=== PATIENT | male | born 1945 | race Caucasian/White ===

== ENCOUNTER 2016-04-27 06:19 | Day surgery (SDC) | payer MEDICARE, OTHER ==
--- NOTE | ~2016-04-27 | OP ---
Record Of Operation [facility] [address] [place]. [address] NAME: ANDREW BELLO : 49 STATUS : [facility]#: [id number] AGE: 71 ADM/REG DATE : 04/27/16 MR#: [id number] REPORT SERV DATE: 04/27/16 DICTATED BY: CYNTHIA TOSCANO DATE: 04/27/16 REPORT STATUS : Draft TRANSCRIBED BY: MODL DATE: 04/27/16 DATE OF PROCEDURE: 04/27/2016 PREOPERATIVE DIAGNOSIS: A 4.2 cm right thyroid nodule benign follicular lesion. 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 PROCEDURE PERFORMED: Right thyroid lobectomy with isthmusectomy. SURGEON: Cynthia Toscano M.D. CULTURAL ANTHROPOLOGY PROFESSOR: Sebastian Schaefer. ANESTHESIA: General. COMPLICATIONS: None. CONDITION: Stable to recovery. INDICATION: This is a 71-year-old male with a longstanding history of right thyroid nodule over 4 cm followed with needle biopsy and ultrasound. 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 The risks, benefits, and alternatives to right thyroid lobectomy, possible total thyroidectomy were explained and he agreed. PROCEDURE IN DETAIL: The patient was identified in the preoperative holding and taken back to the operating room, and placed supine on the operating room table. General anesthesia was established. A time-out was called, the patient and procedure were confirmed. A shoulder roll was placed. He was prepped and incision was outlined with a surgical marking pen, and he was prepped and draped in a standard fashion for the operation. 3 mL of 1% lidocaine with 1:100,000 epinephrine were injected into the anterior neck and the areas of the skin incision. Using 2.5x loupe magnification and headlight illumination, the operation commenced. A 15 blade was used to make the skin incision. Bovie cautery was used to elevate subplatysmal flaps and divide the strap muscles in the midline. The strap muscles were mobilized off the right thyroid lobe. No evidence of extracapsular extension. The gland had a significant retroesophageal component as well as a retrosternal component. The cricothyroid space was developed superiorly. Jermaine clamp was used to grasp the upper pole and the upper pole vessels were identified and clipped with a medium hemoclip on the patient's side, and Harmonic scalpel was used on the thyroid side. The gland was then rotated out of the visceral compartment and from the retroesophageal component with blunt dissection using hemostat and a Kittner dissectors. The inferior thyroid vein was ligated with a medium hemoclip on the patient and Harmonic scalpel on the thyroid. The lower parathyroid was delivered off the lower pole under direct visualization as the gland was mobilized. Once it Record Of Operation [facility] [address] [facility] [place]. [address] NAME: ANDREW BELLO : 49 STATUS : [facility]#: [id number] AGE: 71 ADM/REG DATE : 04/27/16 MR#: [id number] REPORT SERV DATE: 04/27/16 DICTATED BY: CYNTHIA TOSCANO DATE: 04/27/16 REPORT STATUS : Draft TRANSCRIBED BY: KIA DATE: 04/27/16 was brought out of the incision, the large nodule was dissected on its back side on the posterior edge around the Boston's ligament. The recurrent laryngeal nerve was noted up along the posterior aspect of the gland and nodule, and it was dissected off with Kittner dissector and a hemostat gently. The nerve stimulating probe was used to identify the nerve and matted in the tracheoesophageal groove. It had a positive response. During the dissection, there was minimal response suggesting that the nerve was not being stimulated during the dissection. The Boston's ligament tissue was dissected with Harmonic scalpel with the nerve under direct visualization. The upper parathyroid gland had already been dissected off the back of the gland and also the inferior thyroid artery had been ligated with a small hemoclip, as it was attenuated over the back of the gland. Boston's ligament was then dissected. The superior and inferior suspensory ligaments were dissected, and the gland was taken off the anterior trachea and dissected and transected at the junction of the left lobe and isthmus. The gland was sent for frozen section. 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 There was an incidental finding of a 2 mm area that was showing some scar suspicious for a possible papillary microcarcinoma versus biopsy tract. The decision was made to complete the surgery at that point given the findings and that the dominant large nodule was not malignant. The patient tolerated the procedure well. The nerve stimulated at the end of the case at 0.5 milliamps and the wound was irrigated with saline, and there was no need for additional hemostasis. The strap muscles were reapproximated in the midline with 3-0 interrupted Vicryl suture x3, and then the wound was closed in layers using the platysma with 3-0 interrupted Vicryl suture followed by subcuticular 5-0 Monocryl and Steri-Strips. The patient was awakened and taken to recovery in stable condition. PH/MODL Cynthia Toscano M.D. / [id number] CC: John Gannon M.D.
[~2016-04-27 06:19] MED LIST: ACCUNEB INH; ALBUTEROL INH; ASA5GR PO; BEN25 PO; CLARIT10 PO; DIL2TAB PO; ESGIC1 TAB OR; FISH-EPA1000 MG PO; FLEXERIL5 MG PO; FLONASE NAS; FLOVENT110 INH; FLUCON1 PO; GLUCCHONDR PO; HERBALS; HYCODAN1 M1 PO; IBU-200200 MG PO; MEP50TAB PO; MULTIVITAMI1 PO; NAP375 PO; NORV5 PO; PR25 PO; PRILO PO; PROAIR HFA INH; SINGULAIR1 PO; STERAPRED DS10 MG; ULTRAM50 PO; VIB100 PO; VITAMINS; VITE PO; VOLTAREN1 % TOP; ZANAFLEX 4 MG TA4 MG PO; ZANAFLEX2 MG PO; ZOFRAN4 PO
[2016-04-27 08:19] LABS: PTH (INTRAOPERATIVE) 44.5 PG/ML (10.0-65.0); PTH TAT 0 Hrs 18 Mins
== END 2016-04-27 14:08 | disposition home or self-care (01) ==
LOC: SDC 06:19
PROVIDERS: Specialist
PROC: 0GTH0ZZ Resection of Right Thyroid Gland Lobe, Open Approach (ICD-10-PCS; principal; 2016-04-27 07:15)
DX: E04.1 Nontoxic single thyroid nodule (principal); E04.9 Nontoxic goiter, unspecified; G47.30 Sleep apnea, unspecified; Z85.828 Personal history of other malignant neoplasm of skin
CPT/HCPCS: 71020; 83970; 85730; 88307; 88331; 88332; 93005; A9270-GY; J0690; J1170; J2175; J2250; J2550; J2710; J3010